=== PATIENT | female | born 1940 | race Two or more races ===

== ENCOUNTER → 2025-02-25 | Outpatient (CLI) | payer MEDICAID, SELFPAY ==
--- NOTE | 2025-02-25 | XR_ITS ---
Examination:Left hip AP, lateral, AP pelvis 3 views Technique: Hip AP lateral, AP pelvis, 3 views Exam date and time:February 25, 2025 1136 hours INDICATIONS: Left hip surgery December 2024. FINDINGS: Healed left hip fracture with satisfactory alignment Prominent osteopenia Right hip bones of the pelvis intact IMPRESSION: Healed left hip fracture is healed fractures left hemipelvis with satisfactory alignment.
--- NOTE | 2025-02-25 | XR_ITS ---
Examination: Knee bilateral, 6 views Technique: Knee AP, lateral, oblique each knee total 6 views Date and time of exam: February 25, 2025 1136 hours Patient fell December 2024 with injury to both knees, bilateral knee pain. 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
== END | disposition home or self-care (01) ==
PROVIDERS: PCP Physician Assistant; Referring Provider Physician Assistant; Visit Provider Physician Assistant
DX: M25.561 Pain in right knee (principal); M25.562 Pain in left knee; Z87.81 Personal history of (healed) traumatic fracture; S89.91XS Unspecified injury of right lower leg, sequela; S89.92XS Unspecified injury of left lower leg, sequela; W19.XXXS Unspecified fall, sequela
CPT/HCPCS: 73502; 73562

== ENCOUNTER 2025-03-22 09:37 | Outpatient (AMB) | payer MEDICAID, SELFPAY ==
--- NOTE | 2025-03-22 10:06 | PD.ORTHCLVIS ---
Vital signs 03/22/25 10:09 Height 1.52 m Height Method Stated Weight 59.591 kg Weight Measurement Method Standing Scale BMI 25.6 BP 161/79 H Blood Pressure Source Automatic Cuff Blood Pressure Location Left Upper Arm Position Sitting Respiration 19 Pulse 72 Pulse Source Monitor Temp 97.7 F Temp Source Temporal Artery Scan Pulse Oximetry (%) 92 L Oxygen Delivery Method Room Air Med/Allergies Allergies & Medications Allergies No Known Allergies Allergy (Verified 03/22/25 10:09) Medication Reconciliation azithromycin 250 mg tablet 250 mg PO DAILY 02/09/18 [History Confirmed 03/22/25] guaifenesin 600 mg tablet, extended release 12 hr (Mucinex) 600 mg PO BID 02/09/18 [History Confirmed 03/22/25] losartan 100 mg-hydrochlorothiazide 25 mg tablet 1 tab PO QDAY 02/09/18 [History Confirmed 03/22/25] promethazine-DM 6.25 mg-15 mg/5 mL oral syrup 5 ml PO Q6H PRN Ear Pain 02/09/18 [History Confirmed 03/22/25] amlodipine 2.5 mg tablet 2.5 mg PO QDAY 03/22/25 [History Confirmed 03/22/25] Exam Exam Patient is in no acute distress and is cooperative with the examination today. Breathing is nonlabored. In no respiratory distress. Patient has no paraspinal tenderness. Spinal deformity cannot be appreciated. The gait of the patient is nonantalgic Bilateral extremities were evaluated and demonstrates sensation intact to light touch. Palpable pedal pulses are present. No significant edema is present. Bilateral knees were examined and the patient has full strength and range of motion.. The right hip was examined. Patient was able to flex to 90 degrees, adduct to 30 degrees, abduct to 40 degrees, internally rotate to 20 degrees, and externally rotate to 20 degrees. Patient has a negative logroll. Stinchfield is negative. The patient is nontender diffusely to touch. The left hip was examined. Patient was able to flex to 90 degrees, adduct to 30 degrees, abduct to 40 degrees, internally rotate to 20 degrees, and externally rotate to 20 degrees. Patient has a negative logroll. The stinchfield is negative. Right knee demonstrates range of motion from 0 to 100 degrees is tender to palpation medially X-rays demonstrate a cephalomedullary nail in good alignment position. She has significant right knee arthritis medially Assessment and Plan Problem List (1) Closed left hip fracture: Status: Acute Plan: Patient is an 84-year-old female with a cephalomedullary nail after a fall. She is doing well and is 3 months out from that. She does have a lot of back pain. We discussed that she should see a pediatric sports medicine specialist but her hip is doing well. We recommend outpatient physical therapy. She has significant arthritis of the right knee with [id number] arthritis. She would like to get a cortisone injection for the right knee. We would need authorization for this (2) Arthritis of right knee: Status: Acute Advanced Care Planning Discussion Advance care planning discussed with:: patient and child Office Procedures GNS Level of Care Nursing/Assessment Patient Status: Initial/New Patient Nursing Assessment/Reassesment: Medication Reconciliation, Update PMH in EMR and Vital Signs Coordination of Care: Complex Care and Chronic Disease 1-5, Education Complex Pt/Fam, Consent,records obtained, informed consent, 1 Ins Authorization, Lab and Imaging orders, Results/Orders obtained and Staff clarify orders Special Needs: Language special needs New Patient Charge New Patient Point Assignment: 1124 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 ([id number]) MA Intake Visit Data Collection New Patient or Established: New Patient (never been to [facility]) Reason for Visit:: CLOSED FRACTURE HIP LEFT Seen by Clinical Staff ONLY (RN/MA): No File Clerk Data Entry Required: Yes PCP or OBGYN visit in last 3 months: Yes Hx Now: No Do You Feel Safe at Home: Yes Authorities Contacted: N/A Questionairres Past Medical History Past Medical History Have you ever been diagnosed with any of the following: Cardiology Problems Congestive Heart Failure: No Hypertension: Yes Respiratory Problems Chronic Obstructive Pulmonary Disease (COPD): No Asthma: No Bronchitis: No Emphysema: No Pneumonia: No Tuberculosis: No Pulmonary Embolism: No Pulmonary Edema: No Sleep Apnea: No CPAP Dependent: No Respiratory Aspiration: No Dyspnea: No Orthopnea: No Hx Cough: No Cough: No Wheezing: No Chest Deformities: No Smoking: No Smoking Cessation Counseling: No Smoking Exposure: No Tobacco Use: No Clubbing: No Exposure to Respiratory Irritants: No Intubation: No Stomache/Intestinal Problems Liver Cancer: No Hepatitis: No Cirrhosis: No Pancreatic Cancer: No Pancreatitis: No Celiac Disease: No Gall Bladder Disease: Yes Gastrointestinal Bleed: No Esophageal Varices: No Frye's Esophagus: No Colitis: No Ulcerative Colitis: No Diverticulitis: No Diverticulosis: No Ulcer: No Colorectal Cancer: No Irritable Bowel: No Crohn's Disease: No Obstructive Bowel: No Hiatal Hernia: No Hemorrhoids: No Gastroesophageal Reflux Disease: No Polyps: No Obesity: No Genital/Urinary Problems Chronic Kidney Disease: No Renal Disease: No Kidney Stones: No Polycystic Kidney Disease: No Neurogenic Bladder: No Inguinal Hernia: No Dialysis: No Reproductive Problems Breast Cancer: No Endometriosis: No Fibroids: No Genital Herpes: No Gonorrhea: No Pelvic Inflammatory Disease: No Polycystic Ovarian Syndrome: No Previous Pregnancies: No Syphilis: No Uterine Prolapse: No Musculoskeletal Problems Muscular Dystrophy: No Myasthenia Gravis: No Marfan's Syndrome: No Bone Cancer: No Arthritis: No Rheumatoid Arthritis: No Osteoporosis: No Degenerative Disk Disease: No Gout: No Scoliosis: No Carpal Tunnel Syndrome: No Fibromyalgia: No Fractures: No Degenerative Joint Disease: No Osteomyelitis: No Poliovirus: No Head,Eye,Nose,Throat Problems Cataracts: No Glaucoma: No Blind: No Retinal Detachment: No Macular Degeneration: No Chronic Ear Infections: No Deafness: No Eye Prosthesis: No Endocrine Problems Diabetes Mellitus Type 1: No Diabetes Mellitus Type 2: No Blood Problems Sickle Cell Disease: No Subjective Immunization / Flu Flu Vaccine in the Last 12 Months: Yes Flu Vaccine Exclusion Criteria: Already Received History of Present Illness Chief complaint: left hip pain Patient is a 84-year-old female with a intertrochanteric fracture. She is status post TFN done 3 months ago. She has significant back pain right now. She has minimal pain in her left hip Review of Systems Review of Systems: All systems negative unless otherwise noted in HPI.
[2025-03-22 10:09] VITALS: BP 161/79; PULSE 72; RESP 19; TEMP 36.5; O2SAT 92; BMI 25.6
== END 2025-03-22 10:29 | disposition home or self-care (01) ==
PROVIDERS: PCP Nurse Practitioner Primary Care; Referring Provider Nurse Practitioner Primary Care; Supervising Provider Orthopaedic Surgery Adult Reconstructive Orthopaedic Surgery; Visit Provider Orthopaedic Surgery Adult Reconstructive Orthopaedic Surgery
DX: S72.002D Fracture of unspecified part of neck of left femur, subsequent encounter for closed fracture with routine healing (principal); W19.XXXD Unspecified fall, subsequent encounter; M17.11 Unilateral primary osteoarthritis, right knee; M25.552 Pain in left hip; M54.9 Dorsalgia, unspecified; I10 Essential (primary) hypertension
CPT/HCPCS: 99204; G0463

== ENCOUNTER 2025-04-07 14:33 | Outpatient (RCR) | payer MEDICAID, SELFPAY ==
--- NOTE | 2025-04-07 14:54 | PT.OIERPT ---
PT OP Initial Eval Patient Information Outpatient Physical Therapy Treatment Date: 04/07/25 Visit Reasons: post op left hip replacement Medical Diagnosis: Z96.642 Treatment Dx #1: L hip pain Treatment Dx #2: Decreased L hip strength Start of Care: 04/07/25 Date of Onset: 12/19/24 DOS Smoking Status Smoking Status: Never smoker Initial Assessment Subjective: Pt is 84 yr old macedonian speaking female with her dtr who is helping with the Hx. Pt fell and fractured the L hip which was repaired with intermedullary nail in December. Pt is ambulating with a FWW that she has used prior to the fall due to B knee pain and arthritis. Pt is limited with ambulatory distance. PMH: HTN Pt goal: to walk further with less L hip pain Objective: L hip AROM: Flexion: 45 deg with assist to flex the knee Abd: 25 deg with knee flexed IR: unable Gait: slow with FWW SLR: unable Assessment: Pt presents with decreased ROM and strength of L hip limited by pain. The L knee is painful and arthritic and she has difficulty bending the knee to flex the hip and is unable to SLR on L. Pt may benefit from skilled therapy and has fair rehab potential to meet goals. Short Term and Care Home Goals 1. Ind with HEP 2. Improve SLR to 30 deg 3. Improved flexion ROM to 90 deg and abduction to 35 deg 4. Pt will ambulate limited community distances x15 mins Treatment Plan 1. Manual therapy ? 2. Therex ? 3. Modalities as indicated, moist heat pack, ice, electrical stimulation Frequency and Duration: 1-2x a week for 6 Rx sessions plus the evaluation Certification Dates: 04/07/25 to 07/06/25 Procedure Charges OP PT Eval Mod Complex 30 minutes: Yes
--- NOTE | 2025-04-12 18:08 | PT.ODS1RPT ---
PT OP Progress/Discharge Note Date of Service: 04/12/25 Progress Note/DC Note Progress Note/Discharge Note: DC Note Patient Information Visit Reasons: post op left hip replacement Service Continue Service or Discharge: Discharge Discharge Date: 04/12/25 Status Subjective: Pt's dtr called to cancel all therapies due to high hip pain Objective: No Rx no charges Assessment: Pt attended the evaluation and 0 Rx sessions and called to cancel therapy. Plan: Self-D/C
== END 2025-05-06 23:59 | disposition home or self-care (01) ==
LOC: CPTX 14:33
PROVIDERS: PCP Nurse Practitioner Primary Care; Referring Provider Nurse Practitioner Primary Care; Visit Provider Nurse Practitioner Primary Care
DX: M25.552 Pain in left hip (principal); S72.002D Fracture of unspecified part of neck of left femur, subsequent encounter for closed fracture with routine healing; W19.XXXD Unspecified fall, subsequent encounter
CPT/HCPCS: 97162

== ENCOUNTER 2025-05-03 14:36 | Outpatient (AMB) | payer MEDICAID, SELFPAY ==
[2025-05-03 14:49] VITALS: BP 144/83; PULSE 68; RESP 16; TEMP 36.4; O2SAT 93; BMI 25.7
--- NOTE | 2025-05-03 14:49 | ORTHONT_ITS ---
Vital signs 05/03/25 14:49 Height 1.52 m Height Method Stated Weight 59.591 kg Weight Measurement Method Standing Scale BMI 25.7 BP 144/83 H Blood Pressure Source Automatic Cuff Blood Pressure Location Left Upper Arm Position Sitting Respiration 16 Pulse 68 Pulse Source Monitor Temp 97.6 F Temp Source Temporal Artery Scan Pulse Oximetry (%) 93 L Oxygen Delivery Method Room Air Med/Allergies Allergies & Medications Allergies No Known Allergies Allergy (Verified 05/03/25 14:50) Medication Reconciliation azithromycin 250 mg tablet 250 mg PO DAILY 02/09/18 [History Confirmed 05/03/25] guaifenesin 600 mg tablet, extended release 12 hr (Mucinex) 600 mg PO BID 02/09/18 [History Confirmed 05/03/25] losartan 100 mg-hydrochlorothiazide 25 mg tablet 1 tab PO QDAY 02/09/18 [History Confirmed 05/03/25] promethazine-DM 6.25 mg-15 mg/5 mL oral syrup 5 ml PO Q6H PRN Ear Pain 02/09/18 [History Confirmed 05/03/25] amlodipine 2.5 mg tablet 2.5 mg PO QDAY 03/22/25 [History Confirmed 05/03/25] Exam Exam Patient is in no acute distress and is cooperative with the examination today. Breathing is nonlabored. In no respiratory distress. Patient has no paraspinal tenderness. Spinal deformity cannot be appreciated. The gait of the patient is nonantalgic Bilateral extremities were evaluated and demonstrates sensation intact to light touch. Palpable pedal pulses are present. No significant edema is present. Bilateral knees were examined and the patient has full strength and range of motion.. The right hip was examined. Patient was able to flex to 90 degrees, adduct to 30 degrees, abduct to 40 degrees, internally rotate to 20 degrees, and externally rotate to 20 degrees. Patient has a negative logroll. Stinchfield is negative. The patient is nontender diffusely to touch. The left hip was examined. Patient was able to flex to 90 degrees, adduct to 30 degrees, abduct to 40 degrees, internally rotate to 20 degrees, and externally rotate to 20 degrees. Patient has a negative logroll. The stinchfield is negative. Right knee demonstrates range of motion from 0 to 100 degrees is tender to palpation medially X-rays demonstrate a cephalomedullary nail in good alignment position. She has significant right knee arthritis medially Assessment and Plan Problem List (1) Closed left hip fracture: Status: Acute Plan: Patient is an 84-year-old female with a cephalomedullary nail after a fall. She is doing well and is 3 months out from that. She does have a lot of back pain. We discussed that she should see a assistance specialist but her hip is doing well. We recommend outpatient physical therapy. She has significant arthritis of the right knee with [id number] arthritis. She would like to get a cortisone injection for the right knee. We would need authorization for this (2) Arthritis of right knee: Status: Acute Plan: Recommend knee cortisone injection as patient would like to proceed with conservative treatment at this time. The risks and benefits of the procedure were reviewed with the patient and patient gave verbal consent to continue with the procedure. Procedure: performed by Dr. Hernandez Using sterile technique the Right knee was thoroughly prepped with alcohol, and approximately 1 cc of Depo-Medrol 80mg/mL and 4 cc of 0.2% ropivacaine was injected without resistance into the medial tibial femoral joint space. The patient tolerated the procedure. Recommend knee cortisone injection as patient would like to proceed with conserv ative treatment at this time. The risks and benefits of the procedure were reviewed with the patient and patient gave verbal consent to continue with the procedure. Procedure: performed by Dr. Hernandez Using sterile technique the leftknee was thoroughly prepped with alcohol, and approximately 1 cc of Depo-Medrol 80mg/mL and 4 cc of 0.2% ropivacaine was injected without resistance into the medial tibial femoral joint space. The patient tolerated the procedure. Advanced Care Planning Discussion Advance care planning discussed with:: patient and child Office Procedures GNS Level of Care Nursing/Assessment Patient Status: Established Patient Nursing Assessment/Reassesment: Medication Reconciliation, Update PMH in EMR and Vital Signs Coordination of Care: Complex Care and Chronic Disease 1-5, Education Complex Pt/Fam, Consent,records obtained, informed consent, Results/Orders obtained and Staff clarify orders Special Needs: Language special needs Established Patient Charge Established Patient Point Assignment: 95 Established Patient Point Charge: EP Level 3 (80-115) Surgical Proc/IM SQ injection Minor Surgical Procedure: Yes (BILATERAL KNEE INJECTION) Medication Given Medication Given Medication Given: Yes Documented Dose Given: 2 Route: Infiitration Medication Given Medication Given Medication Given: Yes Documented Dose Given: 8 Route: Infiitration Office Meds methylprednisolone acetate 80 mg/mL suspension for injection Performing Provider: Shay Hernandez MD Performing Location: [facility] Administered by: Shay Hernandez MD on 05/03/25 15:18 Dose Route Admin Location Dispensed Lot Number Expiration Date Pack age [facility] Salon Receptionist 160 mg intra-articular KNEE 2 mL [id number] 02/02/27 [address]-5 [id number] [employer] ropivacaine (PF) 2 mg/mL (0.2 %) injection solution Performing Provider: Shay Hernandez MD [facility] Administered by: Shay Hernandez MD on 05/03/25 15:18 Dose Route Admin Location Dispensed Lot Number Expiration Date Pack age [facility] Salon Receptionist 40 mL Infiltration KNEE 40 mL [id number] 08/05/27 79268-416-02 [id number] [facility] Intake Visit Data Collection New Patient or Established: Established Patient (seen at [facility] within 3 years) Reason for Visit:: CLOSED FRACTURE HIP LEFT Seen by Clinical Staff ONLY (RN/MA): No Auditor Tax Required: Yes PCP or OBGYN visit in last 3 months: Yes Hx Now: No Do You Feel Safe at Home: Yes Authorities Contacted: N/A Questionairres Past Medical History Past Medical History Have you ever been diagnosed with any of the following: Cardiology Problems Congestive Heart Failure: No Hypertension: Yes Respiratory Problems Chronic Obstructive Pulmonary Disease (COPD): No Asthma: No Bronchitis: No Emphysema: No Pneumonia: No Tuberculosis: No Pulmonary Embolism: No Pulmonary Edema: No Sleep Apnea: No CPAP Dependent: No Respiratory Aspiration: No Dyspnea: No Orthopnea: No Hx Cough: No Cough: No Wheezing: No Chest Deformities: No Smoking: No Smoking Cessation Counseling: No Smoking Exposure: No Tobacco Use: No Clubbing: No Exposure to Respiratory Irritants: No Intubation: No Stomache/Intestinal Problems Liver Cancer: No Hepatitis: No Cirrhosis: No Pancreatic Cancer: No Pancreatitis: No Celiac Disease: No Gall Bladder Disease: Yes Gastrointestinal Bleed: No Esophageal Varices: No Frye's Esophagus: No Colitis: No Ulcerative Colitis: No Diverticulitis: No Diverticulosis: No Ulcer: No Colorectal Cancer: No Irritable Bowel: No Crohn's Disease: No Obstructive Bowel: No Hiatal Hernia: No Hemorrhoids: No Gastroesophageal Reflux Disease: No Polyps: No Obesity: No Genital/Urinary Problems Chronic Kidney Disease: No Renal Disease: No Kidney Stones: No Polycystic Kidney Disease: No Neurogenic Bladder: No Inguinal Hernia: No Dialysis: No Reproductive Problems Breast Cancer: No Endometriosis: No Fibroids: No Genital Herpes: No Gonorrhea: No Pelvic Inflammatory Disease: No Polycystic Ovarian Syndrome: No Previous Pregnancies: No Syphilis: No Uterine Prolapse: No Musculoskeletal Problems Muscular Dystrophy: No Myasthenia Gravis: No Marfan's Syndrome: No Bone Cancer: No Arthritis: No Rheumatoid Arthritis: No Osteoporosis: No Degenerative Disk Disease: No Gout: No Scoliosis: No Carpal Tunnel Syndrome: No Fibromyalgia: No Fractures: No Degenerative Joint Disease: No Osteomyelitis: No Poliovirus: No Head,Eye,Nose,Throat Problems Cataracts: No Glaucoma: No Blind: No Retinal Detachment: No Macular Degeneration: No Chronic Ear Infections: No Deafness: No Eye Prosthesis: No Endocrine Problems Diabetes Mellitus Type 1: No Diabetes Mellitus Type 2: No Blood Problems Sickle Cell Disease: No Subjective Visit Visit for: follow up visit, knee and injections Immunization / Flu Flu Vaccine in the Last 12 Months: Yes Flu Vaccine Exclusion Criteria: Already Received History of Present Illness Chief complaint: KNEE INJECTION Patient is a 84-year-old female with a intertrochanteric fracture. She is status post TFN done 3 months ago. She has significant back pain right now. She has minimal pain in her left hip Pain Pain level (0-10): 4 Pain duration: COMES AND GOES Pain location: anterior Pain quality: aching Pain timing: increases with activity Associated signs & symptoms: none Ambulatory data Ambulatory device: none Treatments Number of previous injections: 2 Improvement with previous injections: Yes Improvement with PT: No Improvement with NSAIDS: no Review of Systems Review of Systems: All systems negative unless otherwise noted in HPI.
== END 2025-05-03 15:12 | disposition home or self-care (01) ==
PROVIDERS: PCP Nurse Practitioner Primary Care; Referring Provider Nurse Practitioner Primary Care; Supervising Provider Orthopaedic Surgery Adult Reconstructive Orthopaedic Surgery; Visit Provider Orthopaedic Surgery Adult Reconstructive Orthopaedic Surgery
DX: S72.002D Fracture of unspecified part of neck of left femur, subsequent encounter for closed fracture with routine healing (principal); W19.XXXD Unspecified fall, subsequent encounter; M54.9 Dorsalgia, unspecified; M25.552 Pain in left hip; M17.11 Unilateral primary osteoarthritis, right knee
CPT/HCPCS: 20610; 99213; J1010; J2795; G0463